=== PATIENT | female | born 1930 | race Caucasian/White ===

== ENCOUNTER → 2016-11-04 | Outpatient (REF) | payer MEDICARE ==
[~2016-11-04] MED LIST: ACET500T2 OR; ACET50TAOT PO; ALPH0.156 OS; ALPHAGAN OS; AMOX500C PO; ASPI325T OR; AZOP0.2S OU; BIMA01SOL OU; CALC600T10 PO; CALCTAB22 PO; CALCTAB41 PO; CARV6.25 PO; CEPH2CAP PO; CHLO125TA PO; COLA100C2 OR; CORE12.5 OR; COSOPT OU; CRES10TA32 PO; DRIS50002 PO; FERR325T PO; FURO40TA2 PO; GLUCTAB6 PO; HYDR25TA6 OR; LISI-538 PO; LISI5TAB OR; MAGN400T5 PO; MAGN500T2 OR; MILKSUS OR; MULTIVIT PO; OSTEO BIFLEX PO; OSTETAB3 PO; POTA20TA OR; PRAD150C PO; PROT1TAB2 PO; SIMV20TA2 OR; SIMV20TA2 PO; SPIR25TA2 PO; VIT D 2000 PO; VITMTA PO; VOLT1GEL24 TD; ZEST10TA OR; [UNRECOGNIZED DRUG - OTHER] PO
[2016-11-04 11:49] LABS: BASO % 0.5 % (0.0-1.0); EOS # 0.2 K/mm3 (0.0-0.50); EOS % 2.8 % (0.0-3.0); LARGE UNSTAINED CELL # 0.3 K/mm3 (0.0-0.4); LARGE UNSTAINED CELL % 3.4 % (0.0-4.0); LYMPH # 2.4 K/mm3 (1.5-4.5); LYMPH % 29.1 % (24.0-44.0); MEAN CORPUSCULAR HEMOGLOBIN 32.6 pg (27.0-33.0); MEAN CORPUSCULAR HGB CONC 33.4 g/dl (32.0-36.5); MEAN CORPUSCULAR VOLUME 97.6 fl (80.0-96.0); MONO # 0.6 K/mm3 (0.0-0.8); MONO % 7.5 % (0.0-5.0); NEUTROPHILS # 4.2 K/mm3 (1.8-7.7); NEUTROPHILS % 56.8 % (36.0-66.0); PLATELET COUNT, AUTOMATED 229 k/mm3 (150-450); RED CELL DISTRIBUTION WIDTH 12.9 % (11.5-14.5); WHITE BLOOD COUNT 7.4 K/mm3 (4.0-10.0)
[2016-11-04 12:13] LABS: ALBUMIN 3.3 GM/DL (3.2-5.2); ALBUMIN/GLOBULIN RATIO 1.03 (1.00-1.93); ALKALINE PHOSPHATASE 74 U/L (45-117); ALT/SGPT 17 U/L (12-78); ANION GAP 7 MEQ/L (8-16); AST/SGOT 17 U/L (15-37); BILIRUBIN,TOTAL 0.4 MG/DL (0.2-1.0); BLOOD UREA NITROGEN 28 MG/DL (7-18); CALCIUM LEVEL 8.9 MG/DL (8.8-10.2); CARBON DIOXIDE LEVEL 30 MEQ/L (21-32); CHLORIDE LEVEL 101 MEQ/L (98-107); CREATININE FOR GFR 1.33 MG/DL (0.55-1.02); FERRITIN 115 NG/ML (8-252); FREE T4 1.08 NG/DL (0.76-1.46); GLOMERULAR FILTRATION RATE 40.5 (>32); GLUCOSE, FASTING 106 MG/DL (83-110); POTASSIUM SERUM 4.1 MEQ/L (3.5-5.1); SODIUM LEVEL 138 MEQ/L (136-145); TOTAL PROTEIN 6.5 GM/DL (6.4-8.2)
[2016-11-04 12:14] LABS: VITAMIN B12 LEVEL 383 PG/ML (247-911)
[2016-11-08 10:42] LABS: ALBUMIN 3.58 GM/DL (3.29-5.55); ALBUMIN % 55.1 % (55.8-66.1); GAMMA GLOBULIN % 13.4 % (11.1-18.8)
== END ==
LOC: M SFHCPLAZ 07:52
PROVIDERS: ATTEND Family Medicine
DX: D50.9 Iron deficiency anemia, unspecified (principal); N18.3 Chronic kidney disease, stage 3 (moderate); E03.9 Hypothyroidism, unspecified

== ENCOUNTER → 2016-11-25 | Outpatient (CLI) | payer MEDICARE ==
--- NOTE | 2016-11-25 13:37 | REP ---
Clinical: Pain. Technique: Neutral and frog lateral views of the left hip. Findings: Age-related degenerative changes include joint space narrowing, increased sclerosis to the acetabular roof with marginal spurring as well as cortical irregularity to the femoral trochanters. There is no evidence for acute fracture dislocation. Vascular calcifications noted. 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 Signed by Ubaldo Dwyer MD 11/25/2016 01:29 P
--- NOTE | 2016-11-25 13:40 | REP ---
Clinical: Pain. Technique: AP view of the pelvis. Findings: Age-related degenerative changes include periarticular sclerosis to the bilateral sacroiliac joints, joint space narrowing to the bilateral hips with marginal spurring along the acetabular and cortical irregularities to the bilateral greater trochanters as well as diffuse enthesopathy. No acute fracture dislocation. Impression: Moderate age-related degenerative changes. Signed by Ubaldo Dwyer MD 11/25/2016 01:32 P
== END ==
LOC: M RAD 12:38
PROVIDERS: ATTEND Nurse Practitioner Family
DX: M16.12 Unilateral primary osteoarthritis, left hip (principal)
CPT/HCPCS: 72190; 73502; G0463

== ENCOUNTER 2017-01-08 19:27 | Emergency (ER) | payer MEDICARE ==
[~2017-01-08] VITALS: Ht 154.9 cm; Wt 106.6 kg
[~2017-01-08 19:27] MED LIST changes: -CALC600T10 PO; +CALC600T31 PO; +FERR1TAB8 PO; -FERR325T PO; +VOLT1GEL15 TD; -VOLT1GEL24 TD
[2017-01-08] MEDS ORDERED: SPIR25TA2 PO (19:51)
[2017-01-08] MEDS ORDERED: ASPI1TAB PO (19:51)
--- NOTE | 2017-01-08 23:30 | REPUSA ---
CT of the head Clinical history: Headache. Protocol: Multiple axial CT images obtained with 5 mm slice thickness were obtained through the head without administration of contrast. Comparison: None. Findings: The ventricles and sulci are symmetric but prominent in size bilaterally. There is no evide nce of acute hemorrhage or infarct. There is no midline shift, mass effect, or extra-axial fluid julienne ection. The osseous structures are unremarkable. The visualized paranasal sinuses and mastoid air ginny ls are clear. Impression: No acute hemorrhage or infarct. Findings are consistent with age-related atrophy.
--- NOTE | 2017-01-08 23:40 | REPUSA ---
CT of the cervical spine Clinical history: Trauma. Technique: Multiple axial CT images were obtained through the cervical spine without administration o f contrast. Coronal and sagittal 3-D reconstructed images were also obtained. Comparison: None. Findings: The cervical vertebral bodies are in satisfactory positioning and alignment. No fractures or dislocat ions are demonstrated. The odontoid process is intact. Intervertebral disc spaces are severely narrow ed at all levels, with large disc osteophyte complexes seen it C3/C4, C4/C5, C5/C6, and C6/C7. This r esults in moderate central canal stenosis at multiple levels, there is severe central canal stenosis at C6/C7 where the central canal measures 4 mm in AP diameter. There is no evidence of facet subluxa tion. Moderately severe facet arthropathy is seen diffusely. The neural foramen appear grossly patent . The cervical cranial junction is intact. The cervical spinal canal demonstrates normal caliber and contour without evidence of spinal stenosis. The surrounding soft tissues are within normal limits. Impression: 1. No acute fracture or traumatic injury. 2. Severe multilevel degenerative disc disease with disc osteophyte complexes as described. This resu lts in multilevel central canal stenosis, most severe at C6/C7 where severe central canal stenosis me asures 4 mm in AP diameter. 3. Moderately severe bilateral facet arthropathy.
[2017-01-09 00:36] VITALS: BP 199/85
== END 2017-01-09 00:39 | disposition home or self-care (01) ==
LOC: EDBD 19:27 → M ED 19:27
DX: S00.93XA Contusion of unspecified part of head, initial encounter (principal); W01.198A Fall on same level from slipping, tripping and stumbling with subsequent striking against other object, initial encounter; Y92.009 Unspecified place in unspecified non-institutional (private) residence as the place of occurrence of the external cause; Y93.89 Activity, other specified; Y99.8 Other external cause status; I25.10 Atherosclerotic heart disease of native coronary artery without angina pectoris; I10 Essential (primary) hypertension; F17.200 Nicotine dependence, unspecified, uncomplicated; Z79.899 Other long term (current) drug therapy; Z79.82 Long term (current) use of aspirin; Z88.8 Allergy status to other drugs, medicaments and biological substances

== ENCOUNTER → 2017-01-24 | Outpatient (CLI) | payer MEDICARE ==
[~2017-01-24] MED LIST changes: +ASPI1TAB PO
[2017-01-24 13:14] LABS: MEAN CORPUSCULAR HEMOGLOBIN 33.2 pg (27.0-33.0); MEAN CORPUSCULAR VOLUME 97.5 fl (80.0-96.0); WHITE BLOOD COUNT 7.3 K/mm3 (4.0-10.0)
[2017-01-24 13:40] LABS: CALCIUM LEVEL 9.6 MG/DL (8.8-10.2); CREATININE FOR GFR 1.24 MG/DL (0.55-1.02); GLOMERULAR FILTRATION RATE 43.9 (>32); POTASSIUM SERUM 4.4 MEQ/L (3.5-5.1)
== END ==
LOC: M SMT 08:24
PROVIDERS: ATTEND Nurse Practitioner Family
DX: I48.0 Paroxysmal atrial fibrillation (principal); I11.9 Hypertensive heart disease without heart failure

== ENCOUNTER → 2017-02-27 | Outpatient (REF) | payer MEDICARE ==
[2017-02-27 12:17] LABS: BASO % 0.7 % (0.0-1.0); EOS # 0.2 K/mm3 (0.0-0.50); EOS % 3.4 % (0.0-3.0); LARGE UNSTAINED CELL # 0.2 K/mm3 (0.0-0.4); LARGE UNSTAINED CELL % 2.7 % (0.0-4.0); LYMPH % 26.8 % (24.0-44.0); MEAN CORPUSCULAR HEMOGLOBIN 32.6 pg (27.0-33.0); MEAN CORPUSCULAR HGB CONC 33.6 g/dl (32.0-36.5); MEAN CORPUSCULAR VOLUME 97.1 fl (80.0-96.0); MONO # 0.5 K/mm3 (0.0-0.8); MONO % 7.1 % (0.0-5.0); NEUTROPHILS # 3.9 K/mm3 (1.8-7.7); NEUTROPHILS % 59.3 % (36.0-66.0); PLATELET COUNT, AUTOMATED 226 k/mm3 (150-450); RED CELL DISTRIBUTION WIDTH 13.1 % (11.5-14.5); WHITE BLOOD COUNT 6.6 K/mm3 (4.0-10.0)
[2017-02-27 12:44] LABS: ALBUMIN 3.1 GM/DL (3.2-5.2); BILIRUBIN,TOTAL 0.6 MG/DL (0.2-1.0); CREATININE FOR GFR 1.24 MG/DL (0.55-1.02); FREE T4 1.01 NG/DL (0.76-1.46); GLOMERULAR FILTRATION RATE 43.9 (>32); POTASSIUM SERUM 4.1 MEQ/L (3.5-5.1); TOTAL PROTEIN 6.2 GM/DL (6.4-8.2)
[2017-02-28 11:18] LABS: PRETREATED FOLATE FOR RBCFOL 17.5 NG/ML
== END ==
LOC: M SFHCPLAZ 09:14
PROVIDERS: ATTEND Family Medicine
DX: D50.9 Iron deficiency anemia, unspecified (principal); E78.5 Hyperlipidemia, unspecified; N18.3 Chronic kidney disease, stage 3 (moderate); R73.01 Impaired fasting glucose

== ENCOUNTER → 2017-07-04 | Outpatient (REF) | payer MEDICARE ==
[2017-07-04 10:40] LABS: BASO # 0.1 10^3/uL (0.0-0.2); BASO % 0.7 % (0.0-1.0); EOS # 0.2 10^3/uL (0.0-0.50); EOS % 2.9 % (0.0-3.0); HEMATOCRIT 42.4 % (36.0-47.0); HEMOGLOBIN 13.9 g/dl (12.0-16.0); IMMATURE GRANULOCYTE % 0.4 % (0-0); LYMPH # 2.1 10^3/uL (1.5-4.5); LYMPH % 27.2 % (24.0-44.0); MEAN CORPUSCULAR HGB CONC 32.8 g/dl (32.0-36.5); MEAN CORPUSCULAR VOLUME 97.7 fl (80.0-96.0); MONO # 0.8 10^3/uL (0.0-0.8); MONO % 10.3 % (0.0-5.0); NEUTROPHILS # 4.5 10^3/uL (1.8-7.7); NEUTROPHILS % 58.5 % (36.0-66.0); PLATELET COUNT, AUTOMATED 227 10^3/uL (150-450); RED BLOOD COUNT 4.34 10^6/uL (4.00-5.40); RED CELL DISTRIBUTION WIDTH 12.4 % (11.5-14.5); WHITE BLOOD COUNT 7.7 10^3/uL (4.0-10.0)
[2017-07-04 11:04] LABS: ALBUMIN 3.1 GM/DL (3.2-5.2); ALBUMIN/GLOBULIN RATIO 1.03 (1.00-1.93); ALKALINE PHOSPHATASE 64 U/L (45-117); ALT/SGPT 21 U/L (12-78); ANION GAP 6 MEQ/L (8-16); AST/SGOT 21 U/L (7-37); BILIRUBIN,TOTAL 0.5 MG/DL (0.2-1.0); BLOOD UREA NITROGEN 27 MG/DL (7-18); CALCIUM LEVEL 8.6 MG/DL (8.8-10.2); CARBON DIOXIDE LEVEL 33 MEQ/L (21-32); CHLORIDE LEVEL 103 MEQ/L (98-107); CREATININE FOR GFR 1.15 MG/DL (0.55-1.02); FERRITIN 98 NG/ML (8-252); GLOMERULAR FILTRATION RATE 47.7 (>32); GLUCOSE, FASTING 93 MG/DL (83-110); IRON (FE) 84 UG/DL (50-170); MAGNESIUM LEVEL 2.3 MG/DL (1.8-2.4); PERCENT SATURATION 29.3 % (13.2-45.0); POTASSIUM SERUM 4.1 MEQ/L (3.5-5.1); SODIUM LEVEL 142 MEQ/L (136-145); TOTAL IRON BINDING CAPACITY 287 UG/DL (250-450); TOTAL PROTEIN 6.1 GM/DL (6.4-8.2)
[2017-07-04 11:05] LABS: PTH INTACT 48.7 PG/ML (14.0-72.0)
== END ==
LOC: M SFHCPLAZ 09:15
DX: D50.9 Iron deficiency anemia, unspecified (principal); E55.9 Vitamin D deficiency, unspecified
CPT/HCPCS: 83550

== ENCOUNTER 2017-10-02 19:14 | Inpatient (IN) | payer MEDICARE ==
[2017-10-02 21:00] LABS: HEMATOCRIT 43.3 % (36.0-47.0); HEMOGLOBIN 14.5 g/dl (12.0-15.5); MEAN CORPUSCULAR HEMOGLOBIN 30.6 pg (27.0-33.0); MEAN CORPUSCULAR HGB CONC 33.5 g/dl (32.0-36.5); MEAN CORPUSCULAR VOLUME 91.4 fl (80.0-96.0); PLATELET COUNT, AUTOMATED 140 10^3/uL (150-450); RED BLOOD COUNT 4.74 10^6/uL (4.00-5.40); RED CELL DISTRIBUTION WIDTH 13.3 % (11.5-14.5); WHITE BLOOD COUNT 11.8 10^3/uL (4.0-10.0)
[2017-10-02 21:02] LABS: ADD MANUAL DIFFER YES; DIFF SLIDE NUMBER 329; POSITIVE MORPH POS FLAG
[2017-10-02 21:17] LABS: INR 1.17; PARTIAL THROMBOPLASTIN TIME 24.5 SECONDS (26.8-37.9); PROTHROMBIN TIME 15.1 SECONDS (12.4-14.5)
[2017-10-02 21:21] LABS: ATYPICAL LYMPH 3 % (0-5); BANDS 2 % (< 11); EOSINOPHILS 2 % (0-5); LYMPHOCYTES 8 % (16-52); METAMYELOCYTES 1 % (0-0); MONOCYTES 6 % (0-8); NEUTROPHILS 78 % (35-75)
[2017-10-02 21:25] LABS: ALBUMIN 2.6 GM/DL (3.2-5.2); ALKALINE PHOSPHATASE 94 U/L (45-117); ALT/SGPT 27 U/L (12-78); ANION GAP 9 MEQ/L (8-16); AST/SGOT 79 U/L (7-37); BILIRUBIN,DIRECT 0.2 MG/DL (0.0-0.2); BILIRUBIN,TOTAL 0.7 MG/DL (0.2-1.0); BLOOD UREA NITROGEN 26 MG/DL (7-18); CALCIUM LEVEL 8.5 MG/DL (8.8-10.2); CARBON DIOXIDE LEVEL 27 MEQ/L (21-32); CHLORIDE LEVEL 96 MEQ/L (98-107); CK-MB VALUE MASS 2.7 NG/ML (<3.6); CPK CREATINE PHOSPHOKINASE 145 U/L (26-192); CREATININE FOR GFR 1.81 MG/DL (0.55-1.30); GLOMERULAR FILTRATION RATE 28.3 (>32); GLUCOSE, FASTING 137 MG/DL (70-100); LIPASE 107 U/L (73-393); MB/CK RELATIVE INDEX 1.86 (< OR =4); SODIUM LEVEL 132 MEQ/L (136-145); TOTAL PROTEIN 6.9 GM/DL (6.4-8.2); TROPONIN I 0.04 NG/ML (< 0.10)
[2017-10-02 21:26] LABS: PLATELET ESTIMATE DECREASED (NORMAL); TOXIC VACUOLATION 1+
[2017-10-02 21:29] LABS: LACTIC ACID SEPSIS PROTOCOL 2.3 MMOL/L (0.4-2.0)
[2017-10-02] MEDS: NS 1,000 ML IV ×2 (22:00→23:45)
[2017-10-02] MEDS ORDERED: CALCIUM CARBONATE 500 MG CHEW U/D PO (23:30)
[2017-10-02] MEDS ORDERED: ONDANSETRON 4MG/2ML VIAL (J2405) IV (23:45)
[2017-10-03] MEDS: ASPIRIN 81 MG CHEW TABLET PO ×2 (01:48→21:20)
[2017-10-03] MEDS: ROSUVASTATIN 10 MG TAB (CRESTOR) PO ×2 (01:48→21:20)
[2017-10-03] MEDS: ACETAMINOPHEN 500 MG TAB PO (02:18)
[2017-10-03] MEDS: PIPERACILLIN/TAZOBACTAM SOD 2.25 GM in APPROPRIATE DILUENT 1 EA IV ×3 (02:18→18:37)
[2017-10-03 04:40] LABS: HEMATOCRIT 39.5 % (36.0-47.0); HEMOGLOBIN 13.4 g/dl (12.0-15.5); MEAN CORPUSCULAR HEMOGLOBIN 30.9 pg (27.0-33.0); MEAN CORPUSCULAR HGB CONC 33.9 g/dl (32.0-36.5); PLATELET COUNT, AUTOMATED 132 10^3/uL (150-450); RED BLOOD COUNT 4.34 10^6/uL (4.00-5.40); RED CELL DISTRIBUTION WIDTH 13.2 % (11.5-14.5)
[2017-10-03 05:04] LABS: ALBUMIN 2.2 GM/DL (3.2-5.2); ANION GAP 6 MEQ/L (8-16); BLOOD UREA NITROGEN 28 MG/DL (7-18); C REACTIVE PROTEIN QUANTITATIV 7.42 MG/DL (0.00-0.30); CALCIUM LEVEL 8.3 MG/DL (8.8-10.2); CARBON DIOXIDE LEVEL 26 MEQ/L (21-32); CHLORIDE LEVEL 99 MEQ/L (98-107); CPK CREATINE PHOSPHOKINASE 105 U/L (26-192); CREATININE FOR GFR 1.67 MG/DL (0.55-1.30); FREE THYROXINE INDEX 3.4 % (1.3-4.8); GLUCOSE, FASTING 98 MG/DL (70-100); PHOSPHORUS LEVEL 2.9 MG/DL (2.5-4.9); SODIUM LEVEL 131 MEQ/L (136-145); T UPTAKE 41 % (30-39); THYROXINE (T4) 8.2 UG/DL (4.5-12.0); TROPONIN I 0.03 NG/ML (< 0.10)
[2017-10-03 05:09] LABS: CK-MB VALUE MASS 2.2 NG/ML (<3.6); MB/CK RELATIVE INDEX 2.09 (< OR =4)
[2017-10-03] MEDS: HEPARIN SOD (PORCINE) 5000 UNITS/ML VIAL SC (05:47)
[2017-10-03 06:25] LABS: KETONE, URINE AUTO RFX NEGATIVE (NEGATIVE); NITRITE, URINE AUTO RFX NEGATIVE (NEGATIVE); RBC, URINE AUTO RFX 4 /HPF (0-3); SPECIFIC GRAVITY UR AUTO RFX 1.018 (1.002-1.035); SQUAM EPITHELIAL CELL UR AURFX 3 /HPF (0-6)
[2017-10-03 06:51] LABS: LEUKOCYTE ESTERASE UR AUTO RFX 3+ (NEGATIVE); WBC, URINE AUTO RFX 41 /HPF (0-3)
[2017-10-03] MEDS: MAGNESIUM OXIDE 400 MG TAB (MAG-OX) PO (09:44)
[2017-10-03] MEDS: FIBER-CON 625 MG TAB PO (09:44)
[2017-10-03] MEDS: SENOKOT S TAB PO ×2 (09:44→21:20)
[2017-10-03] MEDS: PANTOPRAZOLE 40MG TAB (PROTONIX) PO (09:44)
[2017-10-03] MEDS: MULTIVITAMINS/MINERALS THERAP 1 TAB PO (09:44)
[2017-10-03] MEDS: BRIMONIDINE 0.15% OPHTH SOLN 5 ML OU ×2 (09:45→21:21)
[2017-10-03] MEDS: CARVedilol 6.25 MG TAB PO ×2 (09:45→21:20)
[2017-10-03] MEDS: BRINZOLAMIDE 1 % OPHTH SUSP (AZOPT) 10ML OU ×2 (09:45→21:21)
[2017-10-03 10:38] LABS: CK-MB VALUE MASS 2.6 NG/ML (<3.6); CPK CREATINE PHOSPHOKINASE 103 U/L (26-192); MB/CK RELATIVE INDEX 2.52 (< OR =4); TROPONIN I 0.03 NG/ML (< 0.10)
[2017-10-03] MEDS: LUMIGAN 0.01% EYE DROPS (PATIENT'S OWN MED) OU (21:21)
[2017-10-04] MEDS: PIPERACILLIN/TAZOBACTAM SOD 2.25 GM in APPROPRIATE DILUENT 1 EA IV ×3 (01:55→18:52)
[2017-10-04 06:07] LABS: REASON FOR REVIEW ATYPICAL LYMPHS; SLIDE REVIEW Report; SOURCE PERIPHERAL SMEAR
[2017-10-04 06:27] LABS: ALBUMIN 2.2 GM/DL (3.2-5.2); ANION GAP 9 MEQ/L (8-16); BLOOD UREA NITROGEN 24 MG/DL (7-18); CALCIUM LEVEL 8.1 MG/DL (8.8-10.2); CARBON DIOXIDE LEVEL 24 MEQ/L (21-32); CHLORIDE LEVEL 99 MEQ/L (98-107); CREATININE FOR GFR 1.68 MG/DL (0.55-1.30); GLOMERULAR FILTRATION RATE 30.8 (>32); GLUCOSE, FASTING 77 MG/DL (70-100); MAGNESIUM LEVEL 2.1 MG/DL (1.8-2.4); PHOSPHORUS LEVEL 2.3 MG/DL (2.5-4.9); POTASSIUM SERUM 3.5 MEQ/L (3.5-5.1); SODIUM LEVEL 132 MEQ/L (136-145)
[2017-10-04 06:47] LABS: HEMATOCRIT 41.8 % (36.0-47.0); HEMOGLOBIN 14.3 g/dl (12.0-15.5); MEAN CORPUSCULAR HEMOGLOBIN 31.4 pg (27.0-33.0); MEAN CORPUSCULAR HGB CONC 34.2 g/dl (32.0-36.5); MEAN CORPUSCULAR VOLUME 91.7 fl (80.0-96.0); PLATELET COUNT, AUTOMATED 117 10^3/uL (150-450); RED BLOOD COUNT 4.56 10^6/uL (4.00-5.40); RED CELL DISTRIBUTION WIDTH 13.4 % (11.5-14.5); WHITE BLOOD COUNT 13.5 10^3/uL (4.0-10.0)
[2017-10-04] MEDS: ACETAMINOPHEN 500 MG TAB PO ×2 (06:47→15:13)
[2017-10-04 07:01] LABS: ADD MANUAL DIFFER YES; DIFF SLIDE NUMBER 104; POS COUNT POS FLAG; POSITIVE DIFF POS FLAG; POSITIVE MORPH POS FLAG
[2017-10-04 07:08] LABS: ATYPICAL LYMPH 13 % (0-5); BANDS 2 % (< 11); EOSINOPHILS 4 % (0-5); LYMPHOCYTES 27 % (16-52); METAMYELOCYTES 2 % (0-0); MONOCYTES 5 % (0-8); NEUTROPHILS 47 % (35-75); PLATELET ESTIMATE DECREASED (NORMAL)
[2017-10-04] MEDS: SENOKOT S TAB PO ×2 (09:00→21:00)
[2017-10-04] MEDS: FIBER-CON 625 MG TAB PO (10:23)
[2017-10-04] MEDS: MULTIVITAMINS/MINERALS THERAP 1 TAB PO (10:25)
[2017-10-04] MEDS: PANTOPRAZOLE 40MG TAB (PROTONIX) PO (10:25)
[2017-10-04] MEDS: MAGNESIUM OXIDE 400 MG TAB (MAG-OX) PO (10:25)
[2017-10-04] MEDS: BRINZOLAMIDE 1 % OPHTH SUSP (AZOPT) 10ML OU ×2 (10:27→21:55)
[2017-10-04] MEDS: BRIMONIDINE 0.15% OPHTH SOLN 5 ML OU ×2 (10:27→21:56)
[2017-10-04] MEDS: CARVedilol 6.25 MG TAB PO ×2 (10:27→21:57)
[2017-10-04] MEDS ORDERED: ROSUVASTATIN 10 MG TAB (CRESTOR) As Ordered (21:41)
[2017-10-04] MEDS ORDERED: CARVedilol 6.25 MG TAB As Ordered (21:41)
[2017-10-04] MEDS ORDERED: ASPIRIN 81 MG ENTERIC TAB As Ordered (21:42)
[2017-10-04] MEDS ORDERED: ASPIRIN 81 MG CHEW TABLET As Ordered (21:47)
[2017-10-04] MEDS: ROSUVASTATIN 10 MG TAB (CRESTOR) PO (21:56)
[2017-10-04] MEDS: LUMIGAN 0.01% EYE DROPS (PATIENT'S OWN MED) OU (21:57)
[2017-10-04] MEDS: ASPIRIN 81 MG CHEW TABLET PO (21:59)
[2017-10-05] MEDS: PIPERACILLIN/TAZOBACTAM SOD 2.25 GM in APPROPRIATE DILUENT 1 EA IV ×3 (01:55→17:26)
[2017-10-05 06:05] LABS: HEMATOCRIT 40.1 % (36.0-47.0); HEMOGLOBIN 13.6 g/dl (12.0-15.5); MEAN CORPUSCULAR HEMOGLOBIN 30.8 pg (27.0-33.0); MEAN CORPUSCULAR HGB CONC 33.9 g/dl (32.0-36.5); MEAN CORPUSCULAR VOLUME 90.9 fl (80.0-96.0); PLATELET COUNT, AUTOMATED 109 10^3/uL (150-450); RED BLOOD COUNT 4.41 10^6/uL (4.00-5.40); RED CELL DISTRIBUTION WIDTH 13.2 % (11.5-14.5)
[2017-10-05 06:09] LABS: WHITE BLOOD COUNT 22.1 10^3/uL (4.0-10.0)
[2017-10-05 06:10] LABS: ADD MANUAL DIFFER YES; DIFF SLIDE NUMBER 74; POS COUNT POS FLAG; POSITIVE DIFF POS FLAG; POSITIVE MORPH POS FLAG
[2017-10-05 06:17] LABS: ALBUMIN 1.9 GM/DL (3.2-5.2); ANION GAP 9 MEQ/L (8-16); BLOOD UREA NITROGEN 23 MG/DL (7-18); CALCIUM LEVEL 8.1 MG/DL (8.8-10.2); CARBON DIOXIDE LEVEL 23 MEQ/L (21-32); CHLORIDE LEVEL 99 MEQ/L (98-107); CREATININE FOR GFR 1.75 MG/DL (0.55-1.30); GLOMERULAR FILTRATION RATE 29.4 (>32); GLUCOSE, FASTING 83 MG/DL (70-100); MAGNESIUM LEVEL 2.1 MG/DL (1.8-2.4); PHOSPHORUS LEVEL 1.8 MG/DL (2.5-4.9); POTASSIUM SERUM 3.4 MEQ/L (3.5-5.1); SODIUM LEVEL 131 MEQ/L (136-145)
[2017-10-05 06:42] LABS: ATYPICAL LYMPH 11 % (0-5); EOSINOPHILS 5 % (0-5); LYMPHOCYTES 27 % (16-52); METAMYELOCYTES 1 % (0-0); MONOCYTES 3 % (0-8); NEUTROPHILS 53 % (35-75)
[2017-10-05 06:43] LABS: PLATELET ESTIMATE NORMAL (NORMAL)
[2017-10-05] MEDS: POTASSIUM CHLORIDE 10 MEQ SR TABLET PO (08:38)
[2017-10-05] MEDS: SENOKOT S TAB PO ×2 (08:38→21:47)
[2017-10-05] MEDS: FIBER-CON 625 MG TAB PO (08:38)
[2017-10-05] MEDS: MAGNESIUM OXIDE 400 MG TAB (MAG-OX) PO (08:38)
[2017-10-05] MEDS: MULTIVITAMINS/MINERALS THERAP 1 TAB PO (08:38)
[2017-10-05] MEDS: PANTOPRAZOLE 40MG TAB (PROTONIX) PO (08:38)
[2017-10-05] MEDS: CARVedilol 6.25 MG TAB PO ×2 (08:39→21:51)
[2017-10-05] MEDS: BRINZOLAMIDE 1 % OPHTH SUSP (AZOPT) 10ML OU ×2 (08:39→21:51)
[2017-10-05] MEDS: BRIMONIDINE 0.15% OPHTH SOLN 5 ML OU ×2 (08:39→21:48)
[2017-10-05] MEDS: ACETAMINOPHEN 500 MG TAB PO ×2 (11:49→21:50)
[2017-10-05] MEDS: ASPIRIN 81 MG CHEW TABLET PO (21:47)
[2017-10-05] MEDS: ROSUVASTATIN 10 MG TAB (CRESTOR) PO (21:48)
[2017-10-05] MEDS: LUMIGAN 0.01% EYE DROPS (PATIENT'S OWN MED) OU (21:57)
[2017-10-06] MEDS: traMADol 50 MG TAB PO (00:29)
[2017-10-06] MEDS: PIPERACILLIN/TAZOBACTAM SOD 2.25 GM in APPROPRIATE DILUENT 1 EA IV ×3 (01:10→19:08)
[2017-10-06 06:47] LABS: HEMATOCRIT 42.5 % (36.0-47.0); HEMOGLOBIN 14.4 g/dl (12.0-15.5); MEAN CORPUSCULAR HEMOGLOBIN 30.9 pg (27.0-33.0); MEAN CORPUSCULAR HGB CONC 33.9 g/dl (32.0-36.5); MEAN CORPUSCULAR VOLUME 91.2 fl (80.0-96.0); RED BLOOD COUNT 4.66 10^6/uL (4.00-5.40); RED CELL DISTRIBUTION WIDTH 13.4 % (11.5-14.5)
[2017-10-06 07:20] LABS: ALBUMIN 1.8 GM/DL (3.2-5.2); ANION GAP 7 MEQ/L (8-16); BLOOD UREA NITROGEN 23 MG/DL (7-18); CALCIUM LEVEL 8.4 MG/DL (8.8-10.2); CARBON DIOXIDE LEVEL 24 MEQ/L (21-32); CHLORIDE LEVEL 100 MEQ/L (98-107); CREATININE FOR GFR 1.92 MG/DL (0.55-1.30); GLOMERULAR FILTRATION RATE 26.4 (>32); GLUCOSE, FASTING 63 MG/DL (70-100); MAGNESIUM LEVEL 2.1 MG/DL (1.8-2.4); PHOSPHORUS LEVEL 1.8 MG/DL (2.5-4.9); POTASSIUM SERUM 4.3 MEQ/L (3.5-5.1); SODIUM LEVEL 131 MEQ/L (136-145)
[2017-10-06 07:21] LABS: ADD MANUAL DIFFER YES; DIFF SLIDE NUMBER 51; PLATELET COUNT, AUTOMATED 91 10^3/uL (150-450); POS COUNT POS FLAG; POSITIVE DIFF POS FLAG; POSITIVE MORPH POS FLAG; WHITE BLOOD COUNT 23.8 10^3/uL (4.0-10.0)
[2017-10-06 07:22] LABS: IMMATURE PLATELET FRACTION % 3.2 % (0.0-9.6)
[2017-10-06 07:25] LABS: ATYPICAL LYMPH 13 % (0-5); BANDS 1 % (< 11); EOSINOPHILS 6 % (0-5); LYMPHOCYTES 36 % (16-52); MONOCYTES 6 % (0-8); NEUTROPHILS 38 % (35-75); PLATELET ESTIMATE DECREASED (NORMAL)
[2017-10-06] MEDS: FIBER-CON 625 MG TAB PO (09:57)
[2017-10-06] MEDS: BRINZOLAMIDE 1 % OPHTH SUSP (AZOPT) 10ML OU ×2 (09:57→21:22)
[2017-10-06] MEDS: MULTIVITAMINS/MINERALS THERAP 1 TAB PO (09:57)
[2017-10-06] MEDS: DICLOFENAC 1% TOPICAL GEL (PATIENT'S OWN MED) TOP ×2 (09:57→21:22)
[2017-10-06] MEDS: BRIMONIDINE 0.15% OPHTH SOLN 5 ML OU ×2 (09:57→21:22)
[2017-10-06] MEDS: MAGNESIUM OXIDE 400 MG TAB (MAG-OX) PO (09:57)
[2017-10-06] MEDS: PANTOPRAZOLE 40MG TAB (PROTONIX) PO (09:57)
[2017-10-06] MEDS: CARVedilol 6.25 MG TAB PO ×2 (09:58→21:21)
[2017-10-06] MEDS: SENOKOT S TAB PO ×2 (09:58→20:11)
[2017-10-06] MEDS ORDERED: FUROSEMIDE 20 MG/2 ML VIAL (J1940) IV (17:45)
[2017-10-06 18:07] LABS: HEMOGLOBIN 14.2 g/dl (12.0-15.5); MEAN CORPUSCULAR HEMOGLOBIN 30.6 pg (27.0-33.0); MEAN CORPUSCULAR HGB CONC 33.8 g/dl (32.0-36.5); MEAN CORPUSCULAR VOLUME 90.5 fl (80.0-96.0); RED BLOOD COUNT 4.64 10^6/uL (4.00-5.40); RED CELL DISTRIBUTION WIDTH 13.6 % (11.5-14.5)
[2017-10-06 18:26] LABS: PLATELET COUNT, AUTOMATED 94 10^3/uL (150-450); POS COUNT POS FLAG; POSITIVE DIFF POS FLAG; POSITIVE MORPH POS FLAG; WHITE BLOOD COUNT 30.4 10^3/uL (4.0-10.0)
[2017-10-06 18:27] LABS: ADD MANUAL DIFFER YES; DIFF SLIDE NUMBER 290
[2017-10-06 18:31] LABS: ERYTHROCYTE SEDIMENTATION RATE 19 mm/hr (0-42)
[2017-10-06 18:32] LABS: C REACTIVE PROTEIN QUANTITATIV 8.33 MG/DL (0.00-0.30); NT-PRO BNP 3305 PG/ML (<450)
[2017-10-06 18:32] LABS: LDH LACTATE DEHYDROGENASE 612 U/L (84-246)
[2017-10-06 18:35] LABS: LACTIC ACID SEPSIS PROTOCOL 2.1 MMOL/L (0.4-2.0)
[2017-10-06 18:51] LABS: ATYPICAL LYMPH 31 % (0-5); BANDS 2 % (< 11); EOSINOPHILS 5 % (0-5); LYMPHOCYTES 16 % (16-52); MONOCYTES 1 % (0-8); NEUTROPHILS 45 % (35-75); PLATELET ESTIMATE DECREASED (NORMAL)
[2017-10-06] MEDS: ACETAMINOPHEN 500 MG TAB PO (19:07)
[2017-10-06] MEDS: FUROSEMIDE 40 MG/4 ML VIAL (J1940) IV (19:07)
[2017-10-06 19:41] LABS: FIBRINOGEN 261 MG/DL (221-452)
[2017-10-06 19:41] LABS: PARTIAL THROMBOPLASTIN TIME 35.7 SECONDS (26.8-37.9)
[2017-10-06] MEDS: LUMIGAN 0.01% EYE DROPS (PATIENT'S OWN MED) OU (21:00)
[2017-10-06] MEDS: ASPIRIN 81 MG CHEW TABLET PO (21:19)
[2017-10-06] MEDS: ROSUVASTATIN 10 MG TAB (CRESTOR) PO (21:21)
[2017-10-07] MEDS: PIPERACILLIN/TAZOBACTAM SOD 2.25 GM in APPROPRIATE DILUENT 1 EA IV ×3 (02:02→17:57)
[2017-10-07] MEDS: ACETAMINOPHEN 500 MG TAB PO (02:03)
[2017-10-07 06:54] LABS: ALBUMIN 1.8 GM/DL (3.2-5.2); ANION GAP 8 MEQ/L (8-16); BLOOD UREA NITROGEN 26 MG/DL (7-18); CALCIUM LEVEL 8.5 MG/DL (8.8-10.2); CARBON DIOXIDE LEVEL 27 MEQ/L (21-32); CHLORIDE LEVEL 99 MEQ/L (98-107); CREATININE FOR GFR 1.97 MG/DL (0.55-1.30); GLOMERULAR FILTRATION RATE 25.7 (>32); GLUCOSE, FASTING 71 MG/DL (70-100); MAGNESIUM LEVEL 2.1 MG/DL (1.8-2.4); PHOSPHORUS LEVEL 2.1 MG/DL (2.5-4.9); POTASSIUM SERUM 3.7 MEQ/L (3.5-5.1); SODIUM LEVEL 134 MEQ/L (136-145)
[2017-10-07 06:57] LABS: HEMATOCRIT 36.8 % (36.0-47.0); HEMOGLOBIN 12.6 g/dl (12.0-15.5); MEAN CORPUSCULAR HEMOGLOBIN 31.3 pg (27.0-33.0); MEAN CORPUSCULAR HGB CONC 34.2 g/dl (32.0-36.5); MEAN CORPUSCULAR VOLUME 91.3 fl (80.0-96.0); RED BLOOD COUNT 4.03 10^6/uL (4.00-5.40); RED CELL DISTRIBUTION WIDTH 13.5 % (11.5-14.5)
[2017-10-07 06:58] LABS: ADD MANUAL DIFFER YES; DIFF SLIDE NUMBER 26; PLATELET COUNT, AUTOMATED 85 10^3/uL (150-450); POSITIVE DIFF POS FLAG; POSITIVE MORPH POS FLAG; WHITE BLOOD COUNT 22.7 10^3/uL (4.0-10.0)
[2017-10-07 07:45] LABS: ATYPICAL LYMPH 17 % (0-5); BANDS 3 % (< 11); BASOPHILS 1 % (0-4); EOSINOPHILS 3 % (0-5); LYMPHOCYTES 32 % (16-52); MONOCYTES 3 % (0-8); MYELOCYTES 1 % (0-0); NEUTROPHILS 40 % (35-75); PLATELET ESTIMATE DECREASED (NORMAL)
[2017-10-07 07:46] LABS: ANISOCYTOSIS 1+
[2017-10-07] MEDS: MAGNESIUM OXIDE 400 MG TAB (MAG-OX) PO (09:30)
[2017-10-07] MEDS: MULTIVITAMINS/MINERALS THERAP 1 TAB PO (09:30)
[2017-10-07] MEDS: SENOKOT S TAB PO ×2 (09:30→20:15)
[2017-10-07] MEDS: FIBER-CON 625 MG TAB PO (09:30)
[2017-10-07] MEDS: PANTOPRAZOLE 40MG TAB (PROTONIX) PO (09:30)
[2017-10-07] MEDS: BRIMONIDINE 0.15% OPHTH SOLN 5 ML OU ×2 (09:31→20:15)
[2017-10-07] MEDS: BRINZOLAMIDE 1 % OPHTH SUSP (AZOPT) 10ML OU ×2 (09:31→20:15)
[2017-10-07] MEDS: CARVedilol 6.25 MG TAB PO ×2 (09:31→20:15)
[2017-10-07] MEDS: ASPIRIN 81 MG CHEW TABLET PO (20:15)
[2017-10-07] MEDS: ROSUVASTATIN 10 MG TAB (CRESTOR) PO (20:15)
[2017-10-07] MEDS: LUMIGAN 0.01% EYE DROPS (PATIENT'S OWN MED) OU (20:16)
[2017-10-08] MEDS: PIPERACILLIN/TAZOBACTAM SOD 2.25 GM in APPROPRIATE DILUENT 1 EA IV ×2 (01:44→09:06)
[2017-10-08 05:56] LABS: HEMATOCRIT 36.4 % (36.0-47.0); HEMOGLOBIN 12.5 g/dl (12.0-15.5); MEAN CORPUSCULAR HEMOGLOBIN 30.5 pg (27.0-33.0); MEAN CORPUSCULAR HGB CONC 34.3 g/dl (32.0-36.5); MEAN CORPUSCULAR VOLUME 88.8 fl (80.0-96.0); RED CELL DISTRIBUTION WIDTH 13.6 % (11.5-14.5)
[2017-10-08 06:04] LABS: ADD MANUAL DIFFER YES; DIFF SLIDE NUMBER 23; PLATELET COUNT, AUTOMATED 60 10^3/uL (150-450); POSITIVE DIFF POS FLAG; POSITIVE MORPH POS FLAG; WHITE BLOOD COUNT 23.1 10^3/uL (4.0-10.0)
[2017-10-08 06:05] LABS: IMMATURE PLATELET FRACTION % 3.2 % (0.0-9.6)
[2017-10-08 06:15] LABS: ALBUMIN 1.7 GM/DL (3.2-5.2); ANION GAP 6 MEQ/L (8-16); BLOOD UREA NITROGEN 28 MG/DL (7-18); CALCIUM LEVEL 8.5 MG/DL (8.8-10.2); CARBON DIOXIDE LEVEL 28 MEQ/L (21-32); CHLORIDE LEVEL 98 MEQ/L (98-107); CREATININE FOR GFR 1.85 MG/DL (0.55-1.30); GLOMERULAR FILTRATION RATE 27.6 (>32); GLUCOSE, FASTING 74 MG/DL (70-100); MAGNESIUM LEVEL 2.1 MG/DL (1.8-2.4); NT-PRO BNP 3193 PG/ML (<450); PHOSPHORUS LEVEL 2.9 MG/DL (2.5-4.9); POTASSIUM SERUM 3.7 MEQ/L (3.5-5.1); SODIUM LEVEL 132 MEQ/L (136-145)
[2017-10-08 06:41] LABS: ATYPICAL LYMPH 12 % (0-5); EOSINOPHILS 6 % (0-5); LYMPHOCYTES 32 % (16-52); MONOCYTES 2 % (0-8); NEUTROPHILS 48 % (35-75)
[2017-10-08 06:43] LABS: PLATELET ESTIMATE DECREASED (NORMAL)
[2017-10-08] MEDS: FIBER-CON 625 MG TAB PO (09:06)
[2017-10-08] MEDS: PANTOPRAZOLE 40MG TAB (PROTONIX) PO (09:07)
[2017-10-08] MEDS: MULTIVITAMINS/MINERALS THERAP 1 TAB PO (09:07)
[2017-10-08] MEDS: MAGNESIUM OXIDE 400 MG TAB (MAG-OX) PO (09:07)
[2017-10-08] MEDS: CARVedilol 6.25 MG TAB PO ×2 (09:07→20:12)
[2017-10-08] MEDS: SENOKOT S TAB PO ×2 (09:07→20:11)
[2017-10-08] MEDS: BRIMONIDINE 0.15% OPHTH SOLN 5 ML OU ×2 (09:08→20:11)
[2017-10-08] MEDS: BRINZOLAMIDE 1 % OPHTH SUSP (AZOPT) 10ML OU ×2 (09:08→20:11)
[2017-10-08 15:18] LABS: CONTROL LINE MONO INT CTR LINE PRESENT; MONO SCRN NEGATIVE (NEGATIVE)
[2017-10-08] MEDS ORDERED: PIPERACILLIN/TAZOBACTAM SOD 2.25 GM in D5W MINI-BAG PLUS 50 ML IV (18:00)
[2017-10-08] MEDS: ASPIRIN 81 MG CHEW TABLET PO (20:11)
[2017-10-08] MEDS: LUMIGAN 0.01% EYE DROPS (PATIENT'S OWN MED) OU (20:11)
[2017-10-08] MEDS: ROSUVASTATIN 10 MG TAB (CRESTOR) PO (20:11)
[2017-10-09 05:56] LABS: HEMATOCRIT 36.1 % (36.0-47.0); HEMOGLOBIN 12.3 g/dl (12.0-15.5); MEAN CORPUSCULAR HEMOGLOBIN 30.5 pg (27.0-33.0); MEAN CORPUSCULAR HGB CONC 34.1 g/dl (32.0-36.5); MEAN CORPUSCULAR VOLUME 89.6 fl (80.0-96.0); RED BLOOD COUNT 4.03 10^6/uL (4.00-5.40); RED CELL DISTRIBUTION WIDTH 13.8 % (11.5-14.5)
[2017-10-09 05:59] LABS: PLATELET COUNT, AUTOMATED 46 10^3/uL (150-450); WHITE BLOOD COUNT 15.8 10^3/uL (4.0-10.0)
[2017-10-09 06:00] LABS: ADD MANUAL DIFFER YES; DIFF SLIDE NUMBER 38; POS COUNT POS FLAG; POSITIVE DIFF POS FLAG; POSITIVE MORPH POS FLAG
[2017-10-09 06:01] LABS: IMMATURE PLATELET FRACTION % 3.6 % (0.0-9.6)
[2017-10-09 06:17] LABS: ALBUMIN 1.6 GM/DL (3.2-5.2); ANION GAP 5 MEQ/L (8-16); BLOOD UREA NITROGEN 31 MG/DL (7-18); CALCIUM LEVEL 8.7 MG/DL (8.8-10.2); CARBON DIOXIDE LEVEL 26 MEQ/L (21-32); CHLORIDE LEVEL 102 MEQ/L (98-107); CREATININE FOR GFR 1.62 MG/DL (0.55-1.30); GLOMERULAR FILTRATION RATE 32.1 (>32); GLUCOSE, FASTING 80 MG/DL (70-100); MAGNESIUM LEVEL 2.1 MG/DL (1.8-2.4); PHOSPHORUS LEVEL 4.1 MG/DL (2.5-4.9); POTASSIUM SERUM 4.1 MEQ/L (3.5-5.1); SODIUM LEVEL 133 MEQ/L (136-145)
[2017-10-09 06:43] LABS: ANISOCYTOSIS 1+; ATYPICAL LYMPH 8 % (0-5); BANDS 1 % (< 11); EOSINOPHILS 1 % (0-5); LYMPHOCYTES 42 % (16-52); METAMYELOCYTES 1 % (0-0); MONOCYTES 10 % (0-8); MYELOCYTES 2 % (0-0); NEUTROPHILS 35 % (35-75); PLATELET CLUMPS SMALL AMT; PLATELET ESTIMATE DECREASED (NORMAL)
[2017-10-09] MEDS: SENOKOT S TAB PO ×2 (09:00→20:43)
[2017-10-09] MEDS: PANTOPRAZOLE 40MG TAB (PROTONIX) PO (10:19)
[2017-10-09] MEDS: FIBER-CON 625 MG TAB PO (10:19)
[2017-10-09] MEDS: BRIMONIDINE 0.15% OPHTH SOLN 5 ML OU ×2 (10:19→20:42)
[2017-10-09] MEDS: BRINZOLAMIDE 1 % OPHTH SUSP (AZOPT) 10ML OU ×2 (10:19→20:42)
[2017-10-09] MEDS: ACETAMINOPHEN 500 MG TAB PO ×2 (10:19→17:07)
[2017-10-09] MEDS: CARVedilol 6.25 MG TAB PO ×2 (10:20→20:42)
[2017-10-09] MEDS: MAGNESIUM OXIDE 400 MG TAB (MAG-OX) PO (10:20)
[2017-10-09] MEDS: MULTIVITAMINS/MINERALS THERAP 1 TAB PO (10:20)
[2017-10-09] MEDS: ROSUVASTATIN 10 MG TAB (CRESTOR) PO (20:41)
[2017-10-09] MEDS: LUMIGAN 0.01% EYE DROPS (PATIENT'S OWN MED) OU (20:42)
[2017-10-10 06:13] LABS: ADD MANUAL DIFFER YES; HEMATOCRIT 35.9 % (36.0-47.0); MEAN CORPUSCULAR HEMOGLOBIN 30.5 pg (27.0-33.0); MEAN CORPUSCULAR HGB CONC 33.4 g/dl (32.0-36.5); MEAN CORPUSCULAR VOLUME 91.1 fl (80.0-96.0); PLATELET COUNT, AUTOMATED 42 10^3/uL (150-450); POSITIVE MORPH POS FLAG; RED BLOOD COUNT 3.94 10^6/uL (4.00-5.40); RED CELL DISTRIBUTION WIDTH 13.9 % (11.5-14.5); WHITE BLOOD COUNT 11.1 10^3/uL (4.0-10.0)
[2017-10-10 06:14] LABS: DIFF SLIDE NUMBER 13
[2017-10-10 07:25] LABS: ATYPICAL LYMPH 9 % (0-5); BASOPHILS 1 % (0-4); EOSINOPHILS 2 % (0-5); LYMPHOCYTES 25 % (16-52); MONOCYTES 7 % (0-8); NEUTROPHILS 56 % (35-75)
[2017-10-10 07:27] LABS: PLATELET ESTIMATE DECREASED (NORMAL)
[2017-10-10] MEDS: MULTIVITAMINS/MINERALS THERAP 1 TAB PO (09:08)
[2017-10-10] MEDS: FIBER-CON 625 MG TAB PO (09:08)
[2017-10-10] MEDS: MAGNESIUM OXIDE 400 MG TAB (MAG-OX) PO (09:08)
[2017-10-10] MEDS: PANTOPRAZOLE 40MG TAB (PROTONIX) PO (09:08)
[2017-10-10] MEDS: SENOKOT S TAB PO ×2 (09:08→20:05)
[2017-10-10] MEDS: CARVedilol 6.25 MG TAB PO ×2 (09:11→20:05)
[2017-10-10] MEDS: BRIMONIDINE 0.15% OPHTH SOLN 5 ML OU ×2 (09:11→20:05)
[2017-10-10] MEDS: BRINZOLAMIDE 1 % OPHTH SUSP (AZOPT) 10ML OU ×2 (09:12→20:05)
[2017-10-10] MEDS: ACETAMINOPHEN 500 MG TAB PO (19:06)
[2017-10-10] MEDS: ROSUVASTATIN 10 MG TAB (CRESTOR) PO (20:04)
[2017-10-10] MEDS: LUMIGAN 0.01% EYE DROPS (PATIENT'S OWN MED) OU (20:05)
[2017-10-11 06:05] LABS: HEMATOCRIT 33.8 % (36.0-47.0); HEMOGLOBIN 11.2 g/dl (12.0-15.5); MEAN CORPUSCULAR HEMOGLOBIN 29.9 pg (27.0-33.0); MEAN CORPUSCULAR HGB CONC 33.1 g/dl (32.0-36.5); MEAN CORPUSCULAR VOLUME 90.4 fl (80.0-96.0); RED BLOOD COUNT 3.74 10^6/uL (4.00-5.40); RED CELL DISTRIBUTION WIDTH 14.1 % (11.5-14.5)
[2017-10-11 06:11] LABS: IMMATURE PLATELET FRACTION % 3.4 % (0.0-9.6); PLATELET COUNT, AUTOMATED 40 10^3/uL (150-450)
[2017-10-11] MEDS: PANTOPRAZOLE 40MG TAB (PROTONIX) PO (09:45)
[2017-10-11] MEDS: FIBER-CON 625 MG TAB PO (09:45)
[2017-10-11] MEDS: MAGNESIUM OXIDE 400 MG TAB (MAG-OX) PO (09:45)
[2017-10-11] MEDS: SENOKOT S TAB PO ×2 (09:46→20:46)
[2017-10-11] MEDS: MULTIVITAMINS/MINERALS THERAP 1 TAB PO (09:46)
[2017-10-11] MEDS: CARVedilol 6.25 MG TAB PO ×2 (09:46→20:47)
[2017-10-11] MEDS: BRINZOLAMIDE 1 % OPHTH SUSP (AZOPT) 10ML OU ×2 (09:47→20:46)
[2017-10-11] MEDS: BRIMONIDINE 0.15% OPHTH SOLN 5 ML OU ×2 (09:47→20:46)
[2017-10-11] MEDS: ACETAMINOPHEN 500 MG TAB PO (20:46)
[2017-10-11] MEDS: LUMIGAN 0.01% EYE DROPS (PATIENT'S OWN MED) OU (20:46)
[2017-10-11] MEDS: ROSUVASTATIN 10 MG TAB (CRESTOR) PO (20:46)
[2017-10-12 00:06] LABS: (LD) FRACTION 1 13 % (17-32); (LD) FRACTION 2 35 % (25-40); (LD) FRACTION 3 30 % (17-27); (LD) FRACTION 4 13 % (5-13); (LD) FRACTION 5 9 % (4-20); LDH 391 IU/L (119-226)
[2017-10-12 06:12] LABS: HEMATOCRIT 33.3 % (36.0-47.0); HEMOGLOBIN 11.2 g/dl (12.0-15.5); MEAN CORPUSCULAR HGB CONC 33.6 g/dl (32.0-36.5); MEAN CORPUSCULAR VOLUME 89.3 fl (80.0-96.0); RED BLOOD COUNT 3.73 10^6/uL (4.00-5.40); RED CELL DISTRIBUTION WIDTH 14.4 % (11.5-14.5); WHITE BLOOD COUNT 9.9 10^3/uL (4.0-10.0)
[2017-10-12 06:18] LABS: PLATELET COUNT, AUTOMATED 47 10^3/uL (150-450)
[2017-10-12 06:19] LABS: IMMATURE PLATELET FRACTION % 3.9 % (0.0-9.6); PLATELET F 1.7
[2017-10-12] MEDS: ACETAMINOPHEN 500 MG TAB PO ×3 (06:21→23:06)
[2017-10-12] MEDS: FIBER-CON 625 MG TAB PO (09:19)
[2017-10-12] MEDS: SENOKOT S TAB PO ×3 (09:20→21:00)
[2017-10-12] MEDS: PANTOPRAZOLE 40MG TAB (PROTONIX) PO (09:20)
[2017-10-12] MEDS: MAGNESIUM OXIDE 400 MG TAB (MAG-OX) PO (09:20)
[2017-10-12] MEDS: CARVedilol 6.25 MG TAB PO ×2 (09:20→20:29)
[2017-10-12] MEDS: BRIMONIDINE 0.15% OPHTH SOLN 5 ML OU ×2 (09:20→20:28)
[2017-10-12] MEDS: MULTIVITAMINS/MINERALS THERAP 1 TAB PO (09:20)
[2017-10-12] MEDS: BRINZOLAMIDE 1 % OPHTH SUSP (AZOPT) 10ML OU ×2 (09:20→20:28)
[2017-10-12 10:56] LABS: TOTAL PROTEIN 8.8 GM/DL (6.4-8.2)
[2017-10-12 16:22] LABS: BASO # 0.1 10^3/uL (0.0-0.2); BASO % 0.7 % (0.0-1.0); EOS % 0.4 % (0.0-3.0); HEMATOCRIT 34.6 % (36.0-47.0); HEMOGLOBIN 11.6 g/dl (12.0-15.5); IMMATURE GRANULOCYTE % 1.7 % (0-3.0); LYMPH % 19.6 % (24.0-44.0); MEAN CORPUSCULAR HEMOGLOBIN 30.9 pg (27.0-33.0); MEAN CORPUSCULAR HGB CONC 33.5 g/dl (32.0-36.5); MONO # 1.8 10^3/uL (0.0-0.8); MONO % 18.3 % (0.0-5.0); NEUTROPHILS # 5.9 10^3/uL (1.8-7.7); NEUTROPHILS % 59.3 % (36.0-66.0); RED BLOOD COUNT 3.76 10^6/uL (4.00-5.40); RED CELL DISTRIBUTION WIDTH 14.5 % (11.5-14.5); WHITE BLOOD COUNT 9.9 10^3/uL (4.0-10.0)
[2017-10-12 16:24] LABS: POSITIVE MORPH POS FLAG
[2017-10-12 16:25] LABS: PLATELET COUNT, AUTOMATED 48 10^3/uL (150-450)
[2017-10-12 18:57] LABS: IMMUNOGLOBULIN A 45.6 MG/DL (70-400); IMMUNOGLOBULIN G 4580 MG/DL (681-1648)
[2017-10-12 18:57] LABS: LDH LACTATE DEHYDROGENASE 263 U/L (84-246)
[2017-10-12] MEDS: LUMIGAN 0.01% EYE DROPS (PATIENT'S OWN MED) OU (20:28)
[2017-10-12] MEDS: ROSUVASTATIN 10 MG TAB (CRESTOR) PO (20:29)
[2017-10-12] MEDS: DICLOFENAC 1% TOPICAL GEL (PATIENT'S OWN MED) TOP (23:07)
[2017-10-13] MEDS: ACETAMINOPHEN 500 MG TAB PO ×2 (05:48→16:16)
[2017-10-13 06:31] LABS: HEMATOCRIT 35.3 % (36.0-47.0); HEMOGLOBIN 11.7 g/dl (12.0-15.5); MEAN CORPUSCULAR HEMOGLOBIN 29.9 pg (27.0-33.0); MEAN CORPUSCULAR HGB CONC 33.1 g/dl (32.0-36.5); MEAN CORPUSCULAR VOLUME 90.3 fl (80.0-96.0); RED BLOOD COUNT 3.91 10^6/uL (4.00-5.40); RED CELL DISTRIBUTION WIDTH 14.6 % (11.5-14.5); WHITE BLOOD COUNT 13.5 10^3/uL (4.0-10.0)
[2017-10-13 06:35] LABS: PLATELET COUNT, AUTOMATED 62 10^3/uL (150-450)
[2017-10-13] MEDS: SENOKOT S TAB PO ×2 (09:23→21:02)
[2017-10-13] MEDS: BRINZOLAMIDE 1 % OPHTH SUSP (AZOPT) 10ML OU ×2 (09:23→21:01)
[2017-10-13] MEDS: BRIMONIDINE 0.15% OPHTH SOLN 5 ML OU ×2 (09:23→21:01)
[2017-10-13] MEDS: PANTOPRAZOLE 40MG TAB (PROTONIX) PO (09:23)
[2017-10-13] MEDS: FIBER-CON 625 MG TAB PO (09:23)
[2017-10-13] MEDS: MULTIVITAMINS/MINERALS THERAP 1 TAB PO (09:23)
[2017-10-13] MEDS: CARVedilol 6.25 MG TAB PO ×2 (09:23→21:00)
[2017-10-13] MEDS: MAGNESIUM OXIDE 400 MG TAB (MAG-OX) PO (09:23)
[2017-10-13 10:40] LABS: ALBUMIN 2.32 GM/DL (3.29-5.55); ALBUMIN % 26.4 % (55.8-66.1); ALPHA-1-GLOBULIN % 3.6 % (2.9-4.9); ALPHA-1-GLOBULINS 0.32 GM/DL (0.17-0.41); ALPHA-2-GLOBULINS 0.64 GM/DL (0.42-0.99); ALPHA-2-GLOBULINS % 7.3 % (7.1-11.8); BETA-1-GLOBULINS 0.24 GM/DL (0.28-0.60); BETA-1-GLOBULINS % 2.7 % (4.7-7.2); BETA-2-GLOBULINS 0.24 GM/DL (0.19-0.55); BETA-2-GLOBULINS % 2.7 % (3.2-6.5); GAMMA GLOBULIN % 57.3 % (11.1-18.8); GAMMA GLOBULINS 5.04 GM/DL (0.65-1.58)
[2017-10-13 10:49] LABS: IMMUNOTYPING SERUM IGG ABNORMAL (NORMAL); IMMUNOTYPING SERUM KAPPA ABNORMAL (NORMAL)
[2017-10-13] MEDS ORDERED: PERCOCET 5MG/325MG TAB PO (18:45)
[2017-10-13 20:55] LABS: CK-MB VALUE MASS 1.1 NG/ML (<3.6); CPK CREATINE PHOSPHOKINASE 15 U/L (26-192); MB/CK RELATIVE INDEX 7.33 (< OR =4); NT-PRO BNP 6367 PG/ML (<450); TROPONIN I 0.02 NG/ML (< 0.10)
[2017-10-13] MEDS: LORazepam 0.5 MG TAB PO (21:00)
[2017-10-13] MEDS: ROSUVASTATIN 10 MG TAB (CRESTOR) PO (21:00)
[2017-10-13] MEDS: LUMIGAN 0.01% EYE DROPS (PATIENT'S OWN MED) OU (21:01)
[2017-10-14 05:52] LABS: HEMATOCRIT 34.9 % (36.0-47.0); HEMOGLOBIN 11.5 g/dl (12.0-15.5); MEAN CORPUSCULAR HEMOGLOBIN 29.9 pg (27.0-33.0); MEAN CORPUSCULAR VOLUME 90.9 fl (80.0-96.0); RED BLOOD COUNT 3.84 10^6/uL (4.00-5.40); RED CELL DISTRIBUTION WIDTH 14.6 % (11.5-14.5); WHITE BLOOD COUNT 16.3 10^3/uL (4.0-10.0)
[2017-10-14 05:53] LABS: PLATELET COUNT, AUTOMATED 69 10^3/uL (150-450)
[2017-10-14 05:54] LABS: IMMATURE PLATELET FRACTION % 3.3 % (0.0-9.6)
[2017-10-14] MEDS: FIBER-CON 625 MG TAB PO (08:39)
[2017-10-14] MEDS: MAGNESIUM OXIDE 400 MG TAB (MAG-OX) PO (08:40)
[2017-10-14] MEDS: PANTOPRAZOLE 40MG TAB (PROTONIX) PO (08:40)
[2017-10-14] MEDS: SENOKOT S TAB PO ×2 (08:40→20:06)
[2017-10-14] MEDS: MULTIVITAMINS/MINERALS THERAP 1 TAB PO (08:40)
[2017-10-14] MEDS: CARVedilol 6.25 MG TAB PO ×2 (08:42→20:04)
[2017-10-14] MEDS: BRIMONIDINE 0.15% OPHTH SOLN 5 ML OU ×2 (08:43→20:03)
[2017-10-14] MEDS: BRINZOLAMIDE 1 % OPHTH SUSP (AZOPT) 10ML OU ×2 (08:43→20:03)
[2017-10-14 10:24] LABS: HEMATOCRIT 33.6 % (36.0-47.0); HEMOGLOBIN 11.3 g/dl (12.0-15.5); MEAN CORPUSCULAR HEMOGLOBIN 30.8 pg (27.0-33.0); MEAN CORPUSCULAR HGB CONC 33.6 g/dl (32.0-36.5); MEAN CORPUSCULAR VOLUME 91.6 fl (80.0-96.0); RED BLOOD COUNT 3.67 10^6/uL (4.00-5.40); RED CELL DISTRIBUTION WIDTH 14.6 % (11.5-14.5); WHITE BLOOD COUNT 15.4 10^3/uL (4.0-10.0)
[2017-10-14 10:41] LABS: ANION GAP 6 MEQ/L (8-16); BLOOD UREA NITROGEN 32 MG/DL (7-18); CARBON DIOXIDE LEVEL 26 MEQ/L (21-32); CHLORIDE LEVEL 101 MEQ/L (98-107); CREATININE FOR GFR 1.66 MG/DL (0.55-1.30); GLOMERULAR FILTRATION RATE 31.3 (>32); GLUCOSE, FASTING 192 MG/DL (70-100); PLATELET COUNT, AUTOMATED 69 10^3/uL (150-450); POTASSIUM SERUM 4.4 MEQ/L (3.5-5.1); SODIUM LEVEL 133 MEQ/L (136-145)
[2017-10-14] MEDS ORDERED: IPRATROPIUM 0.5MG/ALBUTEROL 2.5MG INH SOL UD 3ML (DUONEB)(J7620) NEB (12:00)
[2017-10-14] MEDS: PERCOCET 5MG/325MG TAB PO ×2 (14:18→20:06)
[2017-10-14] MEDS: guaiFENesin 200 MG TAB PO (17:13)
[2017-10-14 17:19] LABS: TOTAL VOLUME, URINE 1100 ML
[2017-10-14 17:47] LABS: TOTAL PROTEIN 24 HOUR URINE 213.4 MG/24HR (50-150); URINE TOTAL PROTEIN 19.4 MG/DL (0-12)
[2017-10-14 17:55] LABS: TOTAL PROTEIN,RANDOM URINE 19.4 MG/DL (0.0-12.0); URINE TOTAL PROTEIN 19.4 MG/DL (0-12)
[2017-10-14] MEDS: LUMIGAN 0.01% EYE DROPS (PATIENT'S OWN MED) OU (20:03)
[2017-10-14] MEDS: ROSUVASTATIN 10 MG TAB (CRESTOR) PO (20:03)
[2017-10-15] MEDS: guaiFENesin 200 MG TAB PO ×2 (05:30→17:03)
[2017-10-15 06:14] LABS: HEMATOCRIT 33.4 % (36.0-47.0); MEAN CORPUSCULAR HEMOGLOBIN 30.1 pg (27.0-33.0); MEAN CORPUSCULAR HGB CONC 32.9 g/dl (32.0-36.5); MEAN CORPUSCULAR VOLUME 91.5 fl (80.0-96.0); RED BLOOD COUNT 3.65 10^6/uL (4.00-5.40); RED CELL DISTRIBUTION WIDTH 14.6 % (11.5-14.5); WHITE BLOOD COUNT 15.9 10^3/uL (4.0-10.0)
[2017-10-15 06:15] LABS: PLATELET COUNT, AUTOMATED 86 10^3/uL (150-450)
[2017-10-15 06:29] LABS: ANION GAP 6 MEQ/L (8-16); BLOOD UREA NITROGEN 36 MG/DL (7-18); CALCIUM LEVEL 7.8 MG/DL (8.8-10.2); CARBON DIOXIDE LEVEL 22 MEQ/L (21-32); CHLORIDE LEVEL 104 MEQ/L (98-107); CREATININE FOR GFR 1.43 MG/DL (0.55-1.30); GLOMERULAR FILTRATION RATE 37.1 (>32); GLUCOSE, FASTING 87 MG/DL (70-100); POTASSIUM SERUM 4.6 MEQ/L (3.5-5.1); SODIUM LEVEL 132 MEQ/L (136-145)
[2017-10-15] MEDS: SENOKOT S TAB PO ×2 (08:03→21:21)
[2017-10-15] MEDS: PANTOPRAZOLE 40MG TAB (PROTONIX) PO (08:03)
[2017-10-15] MEDS: MAGNESIUM OXIDE 400 MG TAB (MAG-OX) PO (08:03)
[2017-10-15] MEDS: MULTIVITAMINS/MINERALS THERAP 1 TAB PO (08:04)
[2017-10-15] MEDS: CARVedilol 6.25 MG TAB PO ×2 (08:04→21:20)
[2017-10-15] MEDS: FIBER-CON 625 MG TAB PO (08:05)
[2017-10-15] MEDS: BRINZOLAMIDE 1 % OPHTH SUSP (AZOPT) 10ML OU ×2 (08:13→21:21)
[2017-10-15] MEDS: BRIMONIDINE 0.15% OPHTH SOLN 5 ML OU ×2 (08:13→21:21)
[2017-10-15] MEDS: FUROSEMIDE 20 MG TAB PO (09:45)
[2017-10-15 16:16] LABS: ADAMTS13 Activity 53.6 % (>66.8)
[2017-10-15 16:16] LABS: HEPARIN INDUCED PLATELET ABY 0.312 OD (0.000-0.400)
[2017-10-15] MEDS: DICLOFENAC 1% TOPICAL GEL (PATIENT'S OWN MED) TOP (17:07)
[2017-10-15] MEDS: ROSUVASTATIN 10 MG TAB (CRESTOR) PO (21:20)
[2017-10-15] MEDS: LUMIGAN 0.01% EYE DROPS (PATIENT'S OWN MED) OU (21:21)
[2017-10-16 06:29] LABS: MEAN CORPUSCULAR HEMOGLOBIN 30.7 pg (27.0-33.0); MEAN CORPUSCULAR HGB CONC 33.3 g/dl (32.0-36.5); MEAN CORPUSCULAR VOLUME 92.2 fl (80.0-96.0); RED BLOOD COUNT 3.58 10^6/uL (4.00-5.40); RED CELL DISTRIBUTION WIDTH 14.9 % (11.5-14.5); WHITE BLOOD COUNT 14.4 10^3/uL (4.0-10.0)
[2017-10-16 06:37] LABS: PLATELET COUNT, AUTOMATED 96 10^3/uL (150-450)
[2017-10-16 06:38] LABS: IMMATURE PLATELET FRACTION % 2.8 % (0.0-9.6)
[2017-10-16 07:04] LABS: ANION GAP 6 MEQ/L (8-16); BLOOD UREA NITROGEN 39 MG/DL (7-18); CALCIUM LEVEL 8.2 MG/DL (8.8-10.2); CARBON DIOXIDE LEVEL 27 MEQ/L (21-32); CHLORIDE LEVEL 103 MEQ/L (98-107); CREATININE FOR GFR 1.52 MG/DL (0.55-1.30); GLOMERULAR FILTRATION RATE 34.6 (>32); GLUCOSE, FASTING 83 MG/DL (70-100); POTASSIUM SERUM 3.8 MEQ/L (3.5-5.1); SODIUM LEVEL 136 MEQ/L (136-145)
[2017-10-16] MEDS: guaiFENesin 200 MG TAB PO (09:10)
[2017-10-16] MEDS: FIBER-CON 625 MG TAB PO (09:10)
[2017-10-16] MEDS: SENOKOT S TAB PO ×2 (09:10→20:27)
[2017-10-16] MEDS: CARVedilol 6.25 MG TAB PO ×2 (09:11→20:28)
[2017-10-16] MEDS: MAGNESIUM OXIDE 400 MG TAB (MAG-OX) PO (09:11)
[2017-10-16] MEDS: MULTIVITAMINS/MINERALS THERAP 1 TAB PO (09:11)
[2017-10-16] MEDS: PANTOPRAZOLE 40MG TAB (PROTONIX) PO (09:11)
[2017-10-16] MEDS: BRIMONIDINE 0.15% OPHTH SOLN 5 ML OU ×2 (09:12→20:28)
[2017-10-16] MEDS: BRINZOLAMIDE 1 % OPHTH SUSP (AZOPT) 10ML OU ×2 (09:12→20:28)
[2017-10-16] MEDS: LORazepam 0.5 MG TAB PO (18:18)
[2017-10-16] MEDS: ROSUVASTATIN 10 MG TAB (CRESTOR) PO (20:28)
[2017-10-16] MEDS: LUMIGAN 0.01% EYE DROPS (PATIENT'S OWN MED) OU (20:28)
[2017-10-17] MEDS: guaiFENesin 200 MG TAB PO (04:05)
[2017-10-17 06:08] LABS: HEMATOCRIT 33.3 % (36.0-47.0); HEMOGLOBIN 11.1 g/dl (12.0-15.5); MEAN CORPUSCULAR HEMOGLOBIN 30.1 pg (27.0-33.0); MEAN CORPUSCULAR HGB CONC 33.3 g/dl (32.0-36.5); MEAN CORPUSCULAR VOLUME 90.2 fl (80.0-96.0); PLATELET COUNT, AUTOMATED 108 10^3/uL (150-450); RED BLOOD COUNT 3.69 10^6/uL (4.00-5.40); RED CELL DISTRIBUTION WIDTH 14.9 % (11.5-14.5); WHITE BLOOD COUNT 11.5 10^3/uL (4.0-10.0)
[2017-10-17 06:24] LABS: ANION GAP 5 MEQ/L (8-16); BLOOD UREA NITROGEN 35 MG/DL (7-18); CALCIUM LEVEL 7.9 MG/DL (8.8-10.2); CARBON DIOXIDE LEVEL 27 MEQ/L (21-32); CHLORIDE LEVEL 104 MEQ/L (98-107); CREATININE FOR GFR 1.49 MG/DL (0.55-1.30); GLOMERULAR FILTRATION RATE 35.4 (>32); GLUCOSE, FASTING 92 MG/DL (70-100); POTASSIUM SERUM 3.9 MEQ/L (3.5-5.1); SODIUM LEVEL 136 MEQ/L (136-145)
[2017-10-17 08:24] LABS: FREE LAMBDA LIGHT CHAINS SERUM 22.4 mg/L (5.7-26.3); IMMUNOGLOBULIN D 0.19 mg/dL (<14.11); KAPPA/LAMBDA RATIO SERUM 2.63 (0.26-1.65)
[2017-10-17 08:24] LABS: BETA 2 MICROGLOBULIN 11.3 mg/L (0.6-2.4)
[2017-10-17] MEDS ORDERED: HYOSCYAMINE SULFATE 0.125 MG SUBL TABLET PO (09:15)
[2017-10-17] MEDS ORDERED: MORPHINE 10MG/0.5ML ORAL CONCENTRATE SOLUTION U/D SL (09:15)
[2017-10-17] MEDS: BRIMONIDINE 0.15% OPHTH SOLN 5 ML OU (09:17)
[2017-10-17] MEDS: PANTOPRAZOLE 40MG TAB (PROTONIX) PO (09:18)
[2017-10-17] MEDS: MULTIVITAMINS/MINERALS THERAP 1 TAB PO (09:18)
[2017-10-17] MEDS: FIBER-CON 625 MG TAB PO (09:18)
[2017-10-17] MEDS: MAGNESIUM OXIDE 400 MG TAB (MAG-OX) PO (09:19)
[2017-10-17] MEDS: BRINZOLAMIDE 1 % OPHTH SUSP (AZOPT) 10ML OU (09:19)
[2017-10-17] MEDS: SENOKOT S TAB PO (09:19)
[2017-10-17] MEDS: CARVedilol 6.25 MG TAB PO (09:19)
[2017-10-18 14:00] LABS: URINE VOLUME 1100 ML
[2017-10-18 14:03] LABS: UPEP INTERPRETATION M-SPIKE IN GAMMA
[2017-10-18 15:05] LABS: IMMUNOTYPE URINE IgG ABNORMAL (NORMAL); IMMUNOTYPE URINE KAPPA ABNORMAL (NORMAL)
[2017-10-19 14:04] LABS: FLOW CYTOMETRY FOR SEND OUT See Pathology Report
== END 2017-10-17 10:58 | disposition hospice, inpatient (51) | DRG 840 ==
LOC: M MSPAV 10-03 01:07 → M ED 19:14 → M ED INP 23:36
DX: C90.00 Multiple myeloma not having achieved remission (principal); I50.33 Acute on chronic diastolic (congestive) heart failure; N39.0 Urinary tract infection, site not specified; N17.9 Acute kidney failure, unspecified; I13.0 Hypertensive heart and chronic kidney disease with heart failure and stage 1 through stage 4 chronic kidney disease, or unspecified chronic kidney disease; I48.0 Paroxysmal atrial fibrillation; E78.5 Hyperlipidemia, unspecified; E66.9 Obesity, unspecified; M51.36 Other intervertebral disc degeneration, lumbar region; Q05.9 Spina bifida, unspecified; I89.0 Lymphedema, not elsewhere classified; R16.0 Hepatomegaly, not elsewhere classified; B96.20 Unspecified Escherichia coli [E. coli] as the cause of diseases classified elsewhere; B95.2 Enterococcus as the cause of diseases classified elsewhere; N18.9 Chronic kidney disease, unspecified; D72.829 Elevated white blood cell count, unspecified; K44.9 Diaphragmatic hernia without obstruction or gangrene; D69.6 Thrombocytopenia, unspecified; I71.4 Abdominal aortic aneurysm, without rupture; Z95.0 Presence of cardiac pacemaker; Z88.8 Allergy status to other drugs, medicaments and biological substances; Z87.891 Personal history of nicotine dependence; Z79.82 Long term (current) use of aspirin; Z79.899 Other long term (current) drug therapy